=== PATIENT | female | born 1990 | race Caucasian/White ===

== ENCOUNTER 2020-11-04 10:28 | Outpatient (CLI) | payer MEDICAID ==
[2020-11-04 12:35] VITALS: BP 104/55
[2020-11-04] MEDS ORDERED: PNV1TABL76 MT (12:46)
== END 2020-11-04 13:00 | disposition home or self-care (01) ==
LOC: LAB 10:28 → 8 EST LDRP 10:30
PROVIDERS: ADMIT Obstetrics & Gynecology; ATTEND Obstetrics & Gynecology
DX: O36.0130 Maternal care for anti-D [Rh] antibodies, third trimester, not applicable or unspecified (principal); Z3A.28 28 weeks gestation of pregnancy
CPT/HCPCS: 36415; 86850; 86900; 86901; 90384; 96372; G0378; 99281

== ENCOUNTER 2020-12-06 11:55 | Observation (INO) | payer MEDICAID ==
[~2020-12-06] VITALS: Ht 162.6 cm; Wt 81.6 kg
[~2020-12-06 11:55] MED LIST: PNV1TABL76 MT
[2020-12-06] MEDS ORDERED: ACETAMINOPHEN 500MG TABLET PO NR (12:45)
[2020-12-06 12:57] LABS: CLARITY URINE CLEAR (CLEAR); COLOR URINE YELLOW (YELLOW); KETONES URINE 1+ (NEGATIVE); LEUKOCYTE ESTERASE URINE NEGATIVE (NEGATIVE); NITRITE URINE NEGATIVE (NEGATIVE); OCCULT BLOOD URINE NEGATIVE (NEGATIVE); PROTEIN URINE NEGATIVE (NEGATIVE); SPECIFIC GRAVITY URINE 1.019 (1.005-1.030); UROBILINOGEN URINE 0.2 E.U./dL (0.2-1.0)
== END 2020-12-06 14:00 | disposition home or self-care (01) ==
LOC: 8 EST LDRP 11:55
PROVIDERS: ADMIT Obstetrics & Gynecology; ATTEND Obstetrics & Gynecology
DX: O26.893 Other specified pregnancy related conditions, third trimester (principal); O99.891 Other specified diseases and conditions complicating pregnancy; M54.5 Low back pain; Z3A.33 33 weeks gestation of pregnancy
CPT/HCPCS: 59025; 81003; G0378; 99281